=== PATIENT | female | born 2000 | race African-American/Black ===

== ENCOUNTER 2024-01-04 20:13 | Emergency (ER) | payer MEDICAID, OTHER ==
[~2024-01-04] VITALS: Ht 170.2 cm; Wt 125.0 kg
[2024-01-04 20:25] VITALS: O2SAT 100
[2024-01-04] MEDS: KETOROLAC 60MG/2ML VIAL IM ONE (21:00)
[2024-01-04] MEDS: KETOROLAC 30MG/ML VIAL IM NR (21:00)
[2024-01-04] MEDS: METOCLOPRAMIDE HCL 10MG TABLET PO ONE (21:00)
[2024-01-04] MEDS: DIPHENHYDRAMINE 12.5MG/5ML UDC PO ONE (21:00)
[2024-01-04] MEDS: ACETAMINOPHEN 500MG TABLET PO ONE (21:00)
[2024-01-04] MEDS ORDERED: ACET-2708 MT (23:04)
[2024-01-04] MEDS ORDERED: IBUP-2029 MT (23:04)
[2024-01-04 23:19] VITALS: BP 130/77; PULSE 82; RESP 15; TEMP 98.3
== END 2024-01-04 23:24 | disposition home or self-care (01) ==
LOC: ER 20:13
DX: R51.9 Headache, unspecified (principal)
CPT/HCPCS: 99284; 81025; 96372; J8597; Q0163; J1885